=== PATIENT | female | born 1980 | race Caucasian/White ===

== ENCOUNTER 2023-06-25 05:50 | Day surgery (SDC) | payer OTHER, SELFPAY ==
[2023-06-25] VITALS (15 sets, daily range): BP systolic 103–142; BP diastolic 48–76; PULSE 70–89; RESP 14–18; TEMP 36.1–36.7; O2SAT 90–100; BMI 26.6
[2023-06-25 06:29] LABS: OR HCG Qualitative Urine Negative (Negative)
--- NOTE | 2023-06-25 06:32 | W.PM.OPSUD ---
Surgery/Procedure H&P Update DATE OF PROCEDURE: June 25, 2023 DATE H&P PERFORMED: 06/06/23 H&P UPDATE INFORMATION: I have reviewed H&P completed within last 30 days, I have examined patient prior to procedure and No changes to prior documentation CHANGES TO PREVIOUS DOCUMENTATION: Changes PREOP DIAGNOSIS: Deviated nasal septum/turbinate hypertrophy/JAVIER PRIMARY INDICATION FOR PROCEDURE: Deviated nasal septum and turbinate hypertrophy with associated obstructive sleep apnea PLANNED PROCEDURE: Operation Date: 06/25/23 07:00 Proposed Procedures p Septoplasty/septoplasty w/turbinate reduction(Not Applicable) - Linus Monsivais MD
[2023-06-25] MEDS: sodium chloride 0.9% 1,000 ML 30 ML IV (06:34)
[2023-06-25] MEDS: ceFAZolin 2,000 MG in sodium chloride 0.9% (plus) 50 ML 100 MG IV (06:55)
--- NOTE | 2023-06-25 06:57 | ANES.PREANE2 ---
Pre-Anesthetic Assessment Height/Weight: Height 1.63 m Weight 70.307 kg Temp Pulse Resp BP Pulse Ox O2 Del Method 98.0 F 74 18 142/76 99 Room Air 06/25/23 06:19 06/25/23 06:19 06/25/23 06:19 06/25/23 06:19 06/25/23 06:19 06/25/23 06:19 Preop Diagnosis: Deviated nasal septum/turbinate hypertrophy/JAVIER Operation Date: 06/25/23 07:00 Proposed Procedures p Septoplasty/septoplasty w/turbinate reduction(Not Applicable) - Linus Monsivais MD Familial anesthetic complications: None Was Beta Reed taken within 24 hours: Yes Was Clonidine taken within 24 hours: N/A Last intake: Intake Last Liquid Date 06/24/23 Last Liquid Time 23:30 Last Solid Date 06/24/23 Last Solid Time 23:30 Social No alcohol and No tobacco Exam alert, oriented x 3, clear to auscultation bilaterally and regular rate & rhythm Airway Mallampati: Class I Dentition: full Pulmonary Sleep Apnea CV/HEM PAC/PVC Anesthetic Plan ASA status: 2 Anesthesia: General Risk of > 500 ml blood loss (7ml/kg in children): No Medications/Allergies Home Medications Medication Instructions Recorded Confirmed Last Taken Type albuterol sulfate 90 mcg/actuation 2 puff inhalation Q6H PRN 08/01/22 06/25/23 06/25/23 05:15 History aerosol inhaler Shortness Of Breath cetirizine 10 mg capsule (Zyrtec) 10 mg PO DAILY PRN Allergy Symptoms 08/01/22 06/24/23 06/24/23 History fluticasone propionate 44 1 puff inhalation BID 08/01/22 06/24/23 06/23/23 History mcg/actuation HFA aerosol inhaler (Flovent HFA) fluticasone propionate 50 1 spray intranasal DAILY 08/01/22 06/24/23 06/23/23 History mcg/actuation nasal spray,suspension (Flonase Allergy Relief) metoprolol succinate 25 mg 25 mg PO DAILY #90 tabs 06/19/23 06/24/23 06/24/23 Rx tablet,extended release 24 hr azelastine 137 mcg (0.1 %) nasal 1 spray intranasal DAILY 06/24/23 06/24/23 06/24/23 History spray aerosol Allergies Allergy/AdvReac Type Severity Reaction Status Date / Time ciprofloxacin [From Cipro] Allergy Unknown unknown Verified 06/24/23 08:32 latex Allergy Unknown rash Verified 06/24/23 08:32 beta blockers Allergy Unknown wheeze Uncoded 06/24/23 08:32 Current Medications Generic Name Dose Route Start Last Admin Trade Name Freq PRN Reason Stop Dose Admin Sodium Chloride 1,000 mls @ 30 mls/hr 06/25/23 06:15 06/25/23 06:34 Sodium Chloride 0.9% IV 06/26/23 06:14 30 mls/hr .Q24H VANDANA Administration PFSH Anesthesia Medical History Sleep apnea Premature ventricular contractions Premature atrial contractions Palpitations Female Reproductive History Date of last menstrual period: 06/22/23 Data Anesthesia Cardiac Studies: No Data to Display
[2023-06-25] MEDS: oxymetazoline 0.05% Nasal Spray 15 mL 1 SPRAY NOSTRIL-B (07:12)
[2023-06-25] MEDS: lidocaine-epi 2% 1.7mL Cartridge (OR Only) 17 ML XX (07:19)
--- NOTE | 2023-06-25 07:45 | P.OP_ITS ---
Operative Report Date of procedure: June 25, 2023 Pre-op diagnosis: Obstructive sleep apnea with deviated nasal septum and turbinate hypertrophy Post-op diagnosis: Same Post-op findings: Severely deviated nasal septum with large spur into inferior turbinate and middle meatus right side. 3-4+ turbinate hypertrophy right side greater than left Procedure done: Septoplasty and turbinate reduction inferior turbinate submucous resection technique Implants: 2 septal splints and 2 Telfa packs Specimens removed/disposition: Portions of bilateral inferior turbinates Pathology: Portions of bilateral inferior turbinate Surgeon: Linus Monsivais MD Anesthesia: General and Local Estimated blood loss: 10 mL Complications: No complications encountered Findings: Patient with obstructive sleep apnea noted to have deviated nasal septum and turbinate hypertrophy. Brief History: 42-year-old female patient with history of obstructive sleep apnea noted on exam to have a significantly deviated nasal septum with turbinate hypertrophy. The patient has been using fluticasone propionate without complete relief of the turbinate hypertrophy. Patient is therefore being brought to the operating room at this time to undergo septoplasty and inferior turbinate submucous resection for reduction of the massive turbinate hypertrophy. The procedure its risks and complications were explained in detail to the patient and the office setting. These risks included bleeding and infection and scarring and swelling and bruising and septal hematoma and abscess or perforation as well as change in sense of smell or nasal dryness and recurrent problems and persistence of obstructive sleep apnea as well as more serious risk such as heart attack or stroke or not surviving the surgery. With these things understood informed consent was granted and witnessed. Procedure: Description of procedure: The patient was placed on the operating table in the supine position. Adequate general endotracheal tube anesthesia was obtained. The patient was repositioned into a semirecumbent position. Her eyes were taped shut. Her nose was packed with cottonoids soaked in 12-hour Afrin. Nasal hairs were trimmed with scissors. Afrin packs were removed and the septum and inferior and middle turbinates were infiltrated with local. A total of 8.5 mL of 2% Xylocaine with 1-100,000 epinephrine was utilized. The Afrin packs were reapplied to the nose and the patient was prepped and draped in usual fashion. A timeout was accomplished identifying the patient date of plan procedure allergies fire risk and medications given. With all in agreement the procedure continued. The Afrin packs were once again removed from the nose. The inferior turbinates were outfractured with a Vermillion elevator. A right hemitransfixion incision was created with a 15 blade carrying the incision down to the quadrangular cartilage anteriorly. Then a mucoperichondrial periosteal flap was raised in all directions on the right side. Dissection around the distal aspect anteriorly of the quadrangular cartilage was also accomplished to release scarring. Then a half round knife was used to resect an inferior strip of cartilage that was overriding the crest of the right side creating the large spur. Then the quadrangular cartilage was disarticulated from the perpendicular plate of the ethmoid and vomer and a posterior tunnel created on the left side. Then Gonzalo forceps were used to carefully resect the inferior bony spur. The deviation of the septum superiorly was released and a segment of the superior bony septum was removed and then placed back into the posterior pocket. With this accomplished the septum now rested in a good straight midline position without further deflection. A drain hole was created on the right side inferiorly to prevent hematoma formation. The inferior turbinates were reassessed. These were cauterized intramurally with a needle tip Bovie over their entire length anterior to posterior. The distal aspect of each inferior turbinate along with some of the more proximal bone was resected. Approximately one third of the left inferior turbinate was resected and one half of the right inferior turbinate was resected. The middle turbinates were then assessed and not found to be obstructing. With this airway now found to be patent and symmetrical and a Vermillion elevator passed through both nasal chambers to the nasopharynx and twisted with no obstruction, it was felt the location of the septum and airway were appropriate. The right hemitransfixion incision was closed loosely with interrupted 4-0 chromic suture. 2 septal splints were coated with Neosporin and 1 applied each side of the septum. These were sutured in a through and through fashion with 3-0 Prolene. 2 Telfa packs were then cut to size coated with Neosporin and 1 was applied each side of the septum. The mouth and oropharynx were suctioned clean irrigated and suctioned once again. Saline was used for the irrigation. A face was cleansed. A drip pad was applied under the patient's nose and the patient was returned to anesthesia for wake-up and extubation. The patient tolerated the procedure well had an estimated blood loss of 10 mL and arrived in recovery in stable condition.
[2023-06-25] MEDS: neomycin-poly-bacitracin oint 28 gm 1 APPLIC TOPICAL (07:47)
[2023-06-25] MEDS: fentaNYL 50 mcg/mL INJ 2mL IVP (08:21)
[2023-06-25] MEDS: HYDROcodone-acetaminophen 5-325 mg Tablet 1 TAB PO (09:22)
--- NOTE | 2023-06-25 09:40 | ANE.PACU2 ---
Inpatient post-anesthesia follow up: Airway intact: Yes Vital signs: Temperature 97.0 F Pulse Rate 76 Respiratory Rate 16 Blood Pressure 118/66 Pulse Oximetry 97 Oxygen Delivery Me thod Room Air Oxygen Flow Rate Fraction of Inspir ed Oxygen Hydration adequate: Yes Nausea and vomiting: No Pain level: 1 Mental status: Baseline
== END 2023-06-25 09:45 | disposition home or self-care (01) ==
PROVIDERS: Anesthesiology; PCP Pediatrics; Visit Provider Otolaryngology
PROC: (CPT 30520; principal; 2023-06-25 07:00)
DX: G47.33 Obstructive sleep apnea (adult) (pediatric) (principal); J34.2 Deviated nasal septum; J34.3 Hypertrophy of nasal turbinates
CPT/HCPCS: 30140; 30520; 81025; 84703; 88305; 88311; J0131; J0690; J1100; J2405; J2704; J3010; J3490; J7030